=== PATIENT | female | born 1965 ===

== ENCOUNTER 2016-12-09 12:59 | Outpatient (CLI) | payer OTHER ==
--- NOTE | 2016-12-09 14:12 | XRay Report ---
RIGHT RIBS AP AND OBLIQUE VIEWS: 12/09/16 12:59:00 CLINICAL: Pain. FINDINGS: No rib fracture or rib lesion. The lungs are normally expanded and clear. No pneumothorax. Normal heart and pulmonary vasculature. IMPRESSION: Normal. No rib fracture or rib lesion.
== END 2016-12-09 13:00 | disposition home or self-care (01) ==
LOC: SPVIMAG 12:59
PROVIDERS: ATTEND Internal Medicine Hematology & Oncology
DX: R07.81 Pleurodynia (principal)